=== PATIENT | male | born 1965 | race Caucasian/White ===

== ENCOUNTER 2019-07-23 13:17 | Observation (INO) | payer MEDICARE, MEDICAID ==
--- NOTE | 2019-07-23 13:48 | ED ---
Skin Complaint - HPI Summary HPI Summary: This patient is a 54 year old M presenting to [facility] by EMS accompanied by son with a chief complaint of draining abscess on lower inguinal/groin area since prior to arrival. Pt has PMHx of psoriasis. Per triage, the patient rates the pain 3/10 in severity. Patient denies fever, chills Per triage, Pt has abcess to left lower inguinal/groin area, which burst and is now painful and draining. Pt has not been out of his house for a full year and has not been seen by a physician in 2 years. Medications reviewed. 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 Onset Severity: Mild Current Severity: Mild Pain Intensity: 3 Pain Scale Used: 0-10 Numeric Skin Location: Other: - inguinal/groin Character: Pain, Redness Aggravating Symptom(s): Nothing Alleviating Symptom(s): Nothing Associated Signs & Symptoms: Negative Related History: Diabetes - Allergy/Home Medications Allergies/Adverse Reactions: Allergies Allergy/AdvReac Type Severity Reaction Status Date / Time No Known Allergies Allergy Verified 03/16/15 10:43 PMH/Surg Hx/FS Hx/Imm Hx Endocrine/Hematology History: Reports: Hx Diabetes - no treatment borderline per pt Cardiovascular History: Reports: Hx Hypertension Infectious Disease History: No Infectious Disease History: Denies: Traveled Outside the [place] in Last 30 Days - Family History Known Family History: Positive: Hypertension, Diabetes - Social History Occupation: Unemployed Alcohol Use: None Hx Substance Use: Yes - Occasionally Hx Tobacco Use: Yes Smoking Status (MU): Light Every Day Tobacco Smoker Review of Systems Negative: Fever, Chills Positive: Other - abscess on lower inguinal/groin area All Other Systems Reviewed And Are Negative: Yes Physical Exam - Summary Physical Exam Summary: Constitutional: Well-developed, Well-nourished, Alert. (-) Distressed Skin: Warm, Dry, Left glute and medial thigh with induration, fluctuance, purulent drainage HENT: Normocephalic; Atraumatic Eyes: Conjunctiva normal Neck: Musculoskeletal ROM normal neck. (-) JVD, (-) Stridor, (-) Tracheal deviation Cardio: Rhythm regular, rate normal, Heart sounds normal; Intact distal pulses; The pedal pulses are 2+ and symmetric. Radial pulses are 2+ and symmetric. (-) Murmur Pulmonary/Chest wall: Effort normal. (-) Respiratory distress, (-) Wheezes, (-) Rales Abd: Soft, (-) tenderness, (-) Distension, (-) Guarding, (-) Rebound Musculoskeletal: (-) Edema Lymph: (-) Cervical adenopathy GIGU : Testicle appears intact, no obvious crepitus Neuro: Alert, Oriented x3 Psych: Mood and affect Normal Triage Information Reviewed: Yes Vital Signs On Initial Exam: Initial Vitals Temp Pulse Resp BP Pulse Ox 97.8 F 99 16 117/70 96 07/23/19 13:29 07/23/19 13:29 07/23/19 13:29 07/23/19 13:29 07/23/19 13:29 Vital Signs Reviewed: Yes Diagnostics - Vital Signs Vital Signs Temp Pulse Resp BP Pulse Ox 07/23/19 13:29 97.8 F 99 16 117/70 96 - Laboratory Result Diagrams: 07/23/19 14:13 07/23/19 14:13 Lab Statement: Any lab studies that have been ordered have been reviewed, and results considered in the medical decision making process. - CT Pelvis CT CT Interpretation Completed By: ED Physician Summary of CT Findings: Pelvis CT reveals, per radiologist, IMPRESSION: 1. NO EVIDENCE FOR ABSCESS. 2. THERE IS SUGGESTION OF A SINUS TRACT FROM THE POSTERIOR SUPERFICIAL SOFT TISSUES TO THE SACROCOCCYGEAL REGION WHICH APPEARS TO BE PRESENT ON THE PRIOR STUDY AND SIMILAR IN APPEARANCE. Re-Evaluation - Re-Evaluation First Eval Re-Evaluation Time: 17:31 Comment: Rechecked pt Course/Dx - Course Course Of Treatment: Patient is here with infection in his perineal region. Given patient's infection location and severity of presentation, patient was treated empirically for Keagan's gangrene with vancomycin, clinic myosin, Zosyn. Patient had a normal lactate and WBC here. Patient had a CT scan showed no drainable abscess. Patient is admitted for IV antibiotics for cellulitis - Diagnoses Provider Diagnoses: Cellulitis of perineum, Psoriasis - Physician Notifications Discussed Care Of Patient With: Cari Heck Time Discussed With Above Provider: 17:35 Instructed by Provider To: Other - Discussed case with Dr. Heck who accepts pt for admission. Discharge ED - Sign-Out/Discharge Documenting (check all that apply): Patient Departure - Admit Patient Received Moderate/Deep Sedation with Procedure: No - Discharge Plan Condition: Stable Disposition: ADMITTED TO [facility] - Billing Disposition and Condition Condition: STABLE Disposition: Admitted to [facility] - Attestation Statements Document Initiated by Scribe: Yes Documenting Scribe: Carol Coon Provider For Whom Solomon is Documenting (Include Credential): Kailash Khan MD Scribe Attestation: Carol Reid, scribed for Kailash Khan MD on 07/23/19 at 1921. Scribe Documentation Reviewed: Yes Provider Attestation: The documentation as recorded by the Carol ivey accurately reflects the service I personally performed and the decisions made by Kailash sanchez MD Status of Scribe Document: Viewed
[2019-07-23] MEDS ORDERED: Clindamycin 300 MG IVPREMIX* 300 MG/50 ML SDV IVPB ONE ×2 (13:51→16:00)
[2019-07-23] MEDS ORDERED: Vancomycin(*) 1,500 MG in NS 0.9% 250 ML* 250 ML IVPB ONE (13:51)
[2019-07-23] MEDS ORDERED: Piperacillin/Tazobac ADVAN(*) 3.375 GM in NS 0.9% 100 ML* 100 ML IVPB ONE (13:51)
[2019-07-23 14:26] LABS: ABS Basophils 0.1 10^3/ul (0-0.2); ABS Eosinophils 0.1 10^3/ul (0-0.6); ABS Lymphocytes 1.2 10^3/ul (1.0-4.8); ABS Monocytes 0.6 10^3/ul (0-0.8); ABS Neutrophils 8.1 10^3/ul (1.5-7.7); Eosinophil % 1.4 %; Hematocrit 37 % (42-52); Hemoglobin 12.2 g/dL (14.0-18.0); Lymphocyte % 12.1 %; Mean Corpuscular HGB Conc 33 g/dL (31-36); Mean Corpuscular Hemoglobin 26 pg (27-31); Mean Corpuscular Volume 79 fL (80-94); Mean Platelet Volume 6.9 fL (7.4-10.4); Nucleated Red Blood Cells % 0.1; Platelet Count 305 10^3/uL (150-450); Red Cell Distribution Width 16 % (10-15); White Blood Count 10.2 10^3/uL (3.5-10.8)
[2019-07-23] MEDS ORDERED: Nicotine PATCH 14 MG/24 HR* PATCH TRANSDERM ONE (14:39)
[2019-07-23 15:04] LABS: Albumin 3.3 g/dL (3.2-5.2); BUN/Creatinine Ratio 24.6 (8-20); Calcium 8.9 mg/dL (8.6-10.3); EGFR African American 145.1 (>60); EGFR Non-African American 119.9 (>60); Globulin 3.3 g/dL (2-4); Potassium 3.5 mmol/L (3.5-5.0); Total Bilirubin 0.4 mg/dL (0.2-1.0); Total Protein 6.6 g/dL (6.4-8.9)
[2019-07-23] MEDS ORDERED: NS 0.9% 1000 ML** 1,000 ML IV ONE (15:16)
[2019-07-23] MEDS ORDERED: Iodixanol* (CONTRAST) 320 MG/ML 100 ML SDV IV ONE (15:51)
[2019-07-23] MEDS ORDERED: NS 0.9% 250 ML* 250 ML ONE (16:11)
[2019-07-23] MEDS ORDERED: Docusate CAP* 100 MG PO PRN (17:59)
[2019-07-23] MEDS ORDERED: oxyCODONE/Acetamin 5/325 MG* TAB PO PRN (17:59)
[2019-07-23 18:34] LABS: C Reactive Protein 96.26 mg/L (<8.01)
--- NOTE | 2019-07-23 21:19 | HP ---
CC: Dr. Canelo Richardson; Dr. Chad Méndez / Maddi Wagner NP * ADMISSION HISTORY AND PHYSICAL: DATE OF ADMISSION: 07/23/19 PRIMARY CARE PROVIDER: Dr. Canelo Richardson of [facility]. ATTENDING PHYSICIAN: Dr. Cari Heck.* (DICTATED BY TEETEE CHAHAL NP) INFECTIOUS DISEASE: Dr. Chad Méndez and Maddi Wagner NP CHIEF COMPLAINT: Draining abscess from the groin. HISTORY OF PRESENT ILLNESS: Mr. Miranda is a 54-year-old male patient with reported history of psoriasis, hypertension, tobacco abuse, and arthritis that presented to the emergency department today with a report of pimple like area in the groin that was painful and swollen that burst while at home. The patient noted purulent and sanguineous drainage from the area today and he came to the emergency department for evaluation. The patient states he did not have any fever or chills at home, reported no shortness of breath or dizziness, no constitutional complaints; however, the patient became concerned because he stated he noticed that he had some swelling in the area around the scrotum in his groin and then notices abscess formation superficial on the skin. In the emergency department, the patient had CAT scan done to rule out a Keagan's gangrene. The CAT scan did reveal no evidence for and a deep abscess in the pelvis. There was suggestion of a sinus tract from the posterior superficial soft tissues to the sacrococcygeal region, which appears to be present on prior study and similar in appearance. The emergency department physician did blood cultures on the patient and administered vancomycin, Zosyn, and clindamycin, again to cover for Keagan's gangrene; however, it does not appear that there was a deep abscess formation. However, given the nature of this cellulitis in the groin area and the sensitivity, hospitalists were requested to evaluate the patient for admission. PAST MEDICAL HISTORY: As stated above for psoriasis, hypertension, tobacco abuse, and arthritis. PAST SURGICAL HISTORY: None. MEDICATIONS: At home include: 1. Lisinopril with hydrochlorothiazide 20/25 mg 1 tablet p.o. daily. 2. Mobic 15 mg daily. ALLERGIES: The patient has no known drug allergies. FAMILY HISTORY: Mother with pancreatic cancer, hypertension, and diabetes. Father with hypertension. SOCIAL HISTORY: Reports a lifetime "of smoking." Denies any alcohol use. Denies any illicit drug use. The patient's healthcare proxy is his son who can be reached at [phone]. REVIEW OF SYSTEMS: A 10-point review of systems was evaluated and is negative except as noted in the HPI above. PHYSICAL EXAMINATION GENERAL: The patient is in no acute distress, somewhat pale but otherwise not ill appearing. VITAL SIGNS: Blood pressure 117/70, heart rate 99, respiratory rate 16, O2 saturation 96% on room air with temperature of 97.8. HEENT: The patient is atraumatic, normocephalic. PERRLA, nonicteric sclerae. Oral mucosa is moist. Tongue is midline. NECK: Supple, nontender. No thyromegaly appreciated. No JVD noted. LUNGS: Clear bilaterally to auscultation with no wheezing, rhonchi, or rales. Somewhat diminished at the bases but with good air entry. CARDIOVASCULAR: S1, S2 present. No murmurs, gallops, or rubs noted. Rate and rhythm are regular. ABDOMEN: Soft, nontender, nondistended, obese. Positive bowel sounds in all 4 quadrants. : The patient has erythematous and somewhat excoriated skin around the scrotum. There was a significant amount of edema. He does have an area of drainage noted in the groin. The erythema and edema does track into the medial left thigh, again noting some drainage from the area and into the gluteal fold. There is some fluctuance and induration. There is no obvious crepitus around the region and no crepitus noted to the scrotum or testicles. MUSCULOSKELETAL: The patient has full range of motion. +2 distal pulses palpable. No lower extremity edema. Gross motor and sensation, full range of motion are intact. SKIN: Skin is extremely dry and flaky throughout the trunk, arms, and legs, even throughout the scalp and face. He has 2 areas of scabbing and excoriation on the right cheek and also an area of fresh bleeding on the right cheek. The patient does appear to be itchy from the scab like areas from the psoriasis and quite dry. NEUROLOGIC: He is grossly intact. Alert and oriented x3 with no focal deficits. PSYCHIATRIC: He is cooperative and appropriate. DIAGNOSTIC STUDIES/LAB DATA: WBCs 10.2, RBCs 4.60, hemoglobin 12.2, hematocrit 37, platelets 305. Sodium 136, potassium 3.5, chloride 100, CO2 29, BUN 17, creatinine 0.69, GFR 119.9, glucose 117, lactic acid 1.5, calcium 8.9. Total bilirubin 0.40, AST 9, ALT 9, alk phos 82. CRP is pending. Total protein 6.6, albumin 3.3, globulin 3.3. Albumin globulin ratio of 1.0. CT of the pelvis as noted in the body of this document above. IMPRESSION: Mr. Miranda is a 54-year-old male with minimal medical history that presented to the emergency department today with complaint of groin pain and erythema, noted to have cellulitis and a draining area of superficial abscess. PLAN: The patient has been admitted to observation. 1. Groin cellulitis with superficial abscess. The patient has been given vancomycin, clindamycin, and Zosyn. At this point, he is not exhibiting any signs of sepsis. He is not meeting sepsis criteria. He has no white count, no fever, no tachycardia, and no hypotension. I think at this point we will continue him solely on clindamycin to cover him for skin pathogens. Blood cultures have already been drawn in the emergency department; however, wound culture has not been performed. I have ordered a wound culture now. We will continue to follow the wound culture. I have consulted Infectious Disease for additional recommendations. Again, the CAT scan does not show any deep abscess , so he does not require an I and D; however, given the area and the region of this localized infection and cellulitis, he would be higher risk for abscess formation, also the sinus tract that was noted on CT, which was there from previous imaging; however, again would be concerned that the patient would be high risk for abscess formation. The CRP is pending and again we look to Infectious Disease for any further recommendations. The patient is not compromised hemodynamically. He does not require IV fluids. 2. History of psoriasis. The patient does appear to have very poor skin condition. Per the ER notes and the nursing staff, the patient has not left his house in almost a year. I have put in recommendation for ammonium lactate topical 2 times a day and just do gentle washing of the skin with soap and water to reduce some of the flakiness and then topical ammonium lactate. We would also be looking for recommendations from nurse practitioner Maddi leonard for skin care recommendations as well. 3. History of hypertension. He is normotensive. He will be continued on his lisinopril/hydrochlorothiazide. 4. History of tobacco abuse. He will be given nicotine replacement. He has been counseled on cessation. 5. History of arthritis. He will be continued on Mobic daily. 6. DVT prophylaxis. He will be placed on Lovenox. He is moderate risk and we will encourage ambulation. 7. Diet. Heart healthy as tolerated. The rest of the patient's course will be determined by further diagnostics, laboratories, and any other input from other providers as warranted during this admission. TIME SPENT: Approximately 45 minutes on admission planning to observation. This plan of care has been discussed with Dr. Cari Heck, the attending on this admission; she is in agreement with the plan of care. TEETEE CHAHAL NP [id number]/[facility] #: [id number] NIKHIL
[2019-07-23] MEDS: Clindamycin 300 MG IVPREMIX* 300 MG/50 ML SDV IV SCH (22:02)
[2019-07-23] MEDS: Enoxaparin(*) 40 MG/0.4 ML SYR SUBCUT SCH (22:04)
[2019-07-23] MEDS: Ammonium Lactate 12% 1 APPLIC TUBE TOPICAL SCH (22:25)
[2019-07-24] MEDS: Clindamycin 300 MG IVPREMIX* 300 MG/50 ML SDV IV SCH ×2 (03:58→09:38)
[2019-07-24 05:10] LABS: ABS Eosinophils 0.2 10^3/ul (0-0.6); ABS Lymphocytes 1.4 10^3/ul (1.0-4.8); ABS Monocytes 0.6 10^3/ul (0-0.8); ABS Neutrophils 7.1 10^3/ul (1.5-7.7); Eosinophil % 1.9 %; Hematocrit 32 % (42-52); Hemoglobin 10.5 g/dL (14.0-18.0); Lymphocyte % 14.6 %; Mean Corpuscular HGB Conc 33 g/dL (31-36); Mean Corpuscular Hemoglobin 26 pg (27-31); Mean Corpuscular Volume 80 fL (80-94); Mean Platelet Volume 6.6 fL (7.4-10.4); Nucleated Red Blood Cells % 0.1; Platelet Count 265 10^3/uL (150-450); Red Blood Count 4.04 10^6 /uL (4.18-5.48); Red Cell Distribution Width 16 % (10-15); White Blood Count 9.3 10^3/uL (3.5-10.8)
[2019-07-24] MEDS: Hydrochlorothiazide TAB* 25 MG PO SCH (09:38)
[2019-07-24] MEDS: CMCS:Meloxicam(NF) 7.5 MG TAB PO SCH (09:38)
[2019-07-24] MEDS: Lisinopril TAB* 10 MG PO SCH (09:38)
[2019-07-24] MEDS: Ammonium Lactate 12% 1 APPLIC TUBE TOPICAL SCH ×2 (10:39→20:23)
--- NOTE | 2019-07-24 12:37 | CONS ---
CONSULTATION REPORT: DATE OF ADMISSION: 07/23/19 DATE OF CONSULTATION: 07/24/19 PRIMARY CARE PROVIDER: Dr. Canelo Richardson. PROVIDER REQUESTING CONSULTATION: Bessy Boles NP. CONSULTING SERVICE: Infectious disease. PROVIDER: Tia Liao NP. ATTENDING PROVIDER: Dr. Chad Méndez * (dictated by Tia Liao NP). REASON FOR CONSULTATION: Draining abscess from groin. IMPRESSION: 1. Superficial wounds to the groin and bilateral upper thighs. I suspect this represents stage II pressure ulcers as the patient spends a lot of time in a wheelchair and has limited mobility. There is no erythema in the area or warmth. There are no areas suggestive of undrained abscesses. The patient has no leukocytosis and is afebrile. 2. Tobacco abuse. 3. Obesity, BMI of 46.6. PLAN/RECOMMENDATIONS: The wounds do not appear to be grossly infected. Recommend holding antibiotics. He will need topical treatment for his open wounds. Recommend washing groin area daily with soap and water and apply barrier cream to the open areas. He has been instructed that he could use a pad to protect his clothing from any drainage from the superficial ulcers. Recommend to the patient that he consider seeing a granulizing machine operator regarding his psoriasis. We discussed not taking hot showers and taking warm showers and applying lotion to the intact dry, flaky skin during the day and he should continue using his psoriasis cream on the areas of psoriasis plaques that he has. HISTORY OF PRESENT ILLNESS: Mr. Miranda is a 54-year-old male with past medical history significant for psoriasis, hypertension, tobacco abuse, and arthritis who reports initially noticing pain in his groin on Monday or Monday. He states that the left side opened up on Monday and then the right side opened up on Monday. He denies any fevers or chills and was feeling well, other than the discomfort in his groin due to the wounds. The patient reports that he has been without running water in his house, except for his kitchen throughout the summer and has not been able to fully bathe during this time. The patient states that he noticed some bloody and purulent drainage from the area and decided to come to the emergency room for evaluation. While in the emergency room, he was noted to have edema around the scrotum and groin and some superficial abscesses in the area. He underwent a CT scan to rule out Keagan gangrene. The CT scan did not show any evidence for deep abscess in the pelvis. There was suggestion of a sinus tract, posterior superficial skin tissue to the sacrococcygeal region which had been present on a prior study and was similar in appearance. He had blood cultures drawn and was given a dose of vancomycin, Zosyn, and clindamycin for the possibility of Keagan gangrene. The patient was referred to the hospitalist service for admission. While in the hospital, the patient has remained afebrile with no leukocytosis. His CRP was elevated on admission at 96.26 in the ER and he was continued on clindamycin. He states that the pain that he was having in his groin is improving during this hospitalization. He was noted to have significant difficulty with movement in the bed. He states that he uses a lift chair at home. PAST MEDICAL HISTORY: 1. Psoriasis. 2. Hypertension. 3. Tobacco abuse. 4. Arthritis. PAST SURGICAL HISTORY: None. HOME MEDICATIONS: Lisinopril/hydrochlorothiazide 20/25 one tablet by mouth daily. HOSPITAL MEDICATIONS: 1. Ammonia lactate, apply topical twice daily. 2. Clindamycin 300 mg IV every 6 hours. 3. Colace 100 mg by mouth twice daily as needed for constipation. 4. Lovenox 40 mg subcutaneous daily. 5. Hydrochlorothiazide 25 mg by mouth daily. 6. Lisinopril 20 mg by mouth daily. 7. Meloxicam 15 mg by mouth daily. 8. Nicorette gum 4 mg by mouth every 2 hours as needed for cravings. 9. Percocet 5/325 one tablet by mouth every 6 hours as needed for pain. ALLERGIES: No known drug allergies. FAMILY HISTORY: Denies family history of recurrent resistant infections. Mother with a history of diabetes and pancreatic cancer. A grandfather and a great aunt with cancer that he is unsure of the type. Denies family history of coronary artery disease. SOCIAL HISTORY: Denies alcohol or recreational drug use. He reports smoking 1 pack a day for about 40 years. REVIEW OF SYSTEMS: I performed a 10-point review of systems. All the pertinent positives and negatives are mentioned in the history of present illness. The remaining review of systems are negative. He does report a history of cellulitis in the past, but did not require hospitalization for this. PHYSICAL EXAM: Vital Signs: Temperature 97.3, heart rate 78, respiratory rate 19, O2 sat 96% on room air, blood pressure 111/55. General Appearance: He is alert, appears to be in no acute distress. Head: Normocephalic, atraumatic. ENT: Extraocular movements are intact. Moist mucous membranes. Neck: Supple. No lymphadenopathy. Neurological: Alert and oriented x4. Cranial nerves II through XII are grossly intact. Cardiovascular: Heart rate is regular. No murmurs, rubs, or gallops heard. Respiratory: No accessory muscle use. The lungs are clear, but diminished to auscultation bilateral. Abdomen: Bowel sounds present. Abdomen is large, obese, and nontender. Extremities: There is bilateral lower extremity edema. Musculoskeletal: No clubbing or cyanosis noted. Exhibits good strength in all extremities. Psychological: Calm and cooperative. Skin: The patient has generalized dry and flaky skin including his scalp and face. In his groin, on bilateral posterior thighs, he has superficial open areas with red granulation tissue in the base. No surrounding erythema. Some superficial open areas to the scrotum. Additionally, in his groin on the medial aspect of the upper thighs, he has some induration and edema , but no fluctuance suggestive of abscesses. No tenderness with palpation of this area, other than with palpation of the open areas. DIAGNOSTIC STUDIES/LAB DATA: Sodium 136, potassium 3.5, chloride 100, CO2 of 29 , BUN 17, creatinine 0.69, glucose 117. White blood cell count 9.3, hemoglobin 10.5, hematocrit 32, platelet count 265. CRP on admission 96.26. Please see impression and recommendations outlined above. Recommendations have been discussed with Dr. Francois. Thank you for asking us to see Mr. Miranda in consultation. The case has been reviewed with my attending, Dr. Chad Méndez, who agrees with the plan of care. Reviewed by TIA LIAO, FERNANDO-Tigre 07/25/19 1303 [id number]/[facility] #: [id number] MTDD
--- NOTE | 2019-07-24 13:43 | PN ---
Subjective Date of Service: 07/24/19 Interval History: patient seen this morning, he was lying in bed comfortably, he had difficulty transitioning from one side to side due to body habitus, otherwise denies any chest pain. There was no events overnight. Remains afebrile and normal WBC. Perineum area examined with the presence of his nurse and ID SPORTS RECRUITER Maddi. His lesion are consistent with superficial stage 2 scrotal ulcers bilateral larger on the left side. Does not seem to be infected locally or systemically. Past Medical History: Unchanged from Admission Objective Active Medications: Ammonium Lactate (Lac-Hydrin 12 %) 1 applic TOPICAL BID [facility] Last Admin: 07/24/19 10:39 Dose: 1 applic Docusate Sodium (Colace Cap*) 100 mg PO BID PRN PRN Reason: CONSTIPATION Enoxaparin Sodium (Lovenox(*)) 40 mg SUBCUT Q24H [facility] Last Admin: 07/23/19 22:04 Dose: 40 mg Hydrochlorothiazide (Hydrodiuril Tab*) 25 mg PO DAILY [facility] Last Admin: 07/24/19 09:38 Dose: 25 mg Lisinopril (Prinivil Tab*) 20 mg PO DAILY [facility] Last Admin: 07/24/19 09:38 Dose: 20 mg Meloxicam (Mobic(Nf)) 15 mg PO DAILY [facility] Last Admin: 07/24/19 09:38 Dose: 15 mg Nicotine Polacrilex (Nicotine Gum*) 4 mg PO Q2H PRN PRN Reason: CRAVING Oxycodone/Acetaminophen (Percocet 5/325 Tab*) 1 tab PO Q6H PRN PRN Reason: PAIN - SEVERE Vital Signs - 8 hr 07/24/19 11:15 Temperature 98.3 F Pulse Rate 74 Respiratory 20 Rate Blood Pressure 95/56 (mmHg) O2 Sat by Pulse 97 Oximetry Oxygen Devices in Use Now: None Appearance: obese, poor hygiene lying in bed in a bariatric bed experiencing difficulty rotating himself in bed from one side to another. Eyes: No Scleral Icterus, - - EOMI Ears/Nose/Mouth/Throat: Mucous Membranes Moist Neck: - - large neck, but supple having difficult extending his neck due to body habitus Respiratory: - - limited to anterior auscultations, poor airflow and distant breath sounds. Abdominal: NL Sounds; No Tenderness; No Distention - obese, Extremities: - - bilateral lymphedema Skin: - - bilateral scrotal sac stage 2 ulcers larger on left. Neurological: Alert and Oriented x 3 - having difficult lifting his leg of the bed due to deconditioning. Result Diagrams: 07/24/19 04:52 07/23/19 14:13 Assess/Plan/Problems-Billing Assessment: 54 y/o male morbid obese admitted via ER for presumed scrotal cellulitis and was treated empirically with Vanco/Zosyn and clinda. Upon evaluation today His skin lesion are consistent with stage 2 ulcers due to pressure ulcer and poor hygiene. - Patient Problems (1) Decubitus skin ulcer Current Visit: Yes Status: Acute Code(s): L89.90 - PRESSURE ULCER OF UNSPECIFIED SITE, UNSPECIFIED STAGE SNOMED Code(s): 779032355 Comment: - His skin wound are consistent with decubitus ulcers. No sign of localized or systemic infecitons - will require personal hygiene to preneal area with soap and water - Wound care consult appreciated. Will implement the wound care recommendations with barrier cream (2) Morbid obesity Current Visit: Yes Status: Acute Code(s): E66.01 - MORBID (SEVERE) OBESITY DUE TO EXCESS CALORIES SNOMED Code(s): 028157135 Comment: - Patient having difficulty moving in bed due to body habitus. Poor hygiene with clear evidence of having difficulty performing personal hygiene at home and caring for himself - At this time, secondary social studies teacher referred to help coordinate safe disposition (3) Psoriasis Current Visit: Yes Status: Acute Code(s): L40.9 - PSORIASIS, UNSPECIFIED SNOMED Code(s): 7116528 Comment: - Will require Dermatology referral as outpatient (4) Hypertension Current Visit: Yes Status: Acute Code(s): I10 - ESSENTIAL (PRIMARY) HYPERTENSION SNOMED Code(s): 92662225 Comment: - continue lisinoprol 20 mg and HCTZ 25 mg (5) DVT prophylaxis Current Visit: Yes Status: Acute Code(s): Z29.9 - ENCOUNTER FOR PROPHYLACTIC MEASURES, UNSPECIFIED SNOMED Code(s): 908551095 Comment: - Lovenox 40 mg SQ daily Status and Disposition: home versus placement pending social and discharge plan assessment
[2019-07-24] MEDS: Nicotine* 4MG (FRUIT FLAVOR) GUM PO PRN (17:52)
[2019-07-24] MEDS: Enoxaparin(*) 40 MG/0.4 ML SYR SUBCUT SCH (20:19)
[2019-07-25 07:33] VITALS: BP 101/64
[2019-07-25] MEDS: Nicotine* 4MG (FRUIT FLAVOR) GUM PO PRN (07:34)
[2019-07-25] MEDS: Hydrochlorothiazide TAB* 25 MG PO SCH (07:35)
[2019-07-25] MEDS: CMCS:Meloxicam(NF) 7.5 MG TAB PO SCH (07:36)
[2019-07-25] MEDS: Lisinopril TAB* 10 MG PO SCH (07:39)
[2019-07-25] MEDS: Ammonium Lactate 12% 1 APPLIC TUBE TOPICAL SCH (07:40)
--- NOTE | 2019-07-25 10:33 | DS ---
CC: Primary care provider, Dr. Canelo Richardson * DISCHARGE SUMMARY: DATE OF ADMISSION: 07/23/19 DATE OF DISCHARGE: 07/25/19 FINAL DISCHARGE DIAGNOSES: 1. Bilateral decubitus ulcer inner thigh. 2. Hypertension. 3. Psoriasis. 4. Morbid obesity. HOSPITAL COURSE: This is a 54-year-old, morbidly obese, with underlying psoriasis, hypertension, tobacco abuse, who presented to the emergency room for swelling, pain and irritation in the groin area. He reported to the emergency room he felt like a pimple with fluid discharge in the inner thigh. In the emergency room there was concern for Keagan's disease. He underwent full workup for Keagan's which included pelvic CT scan which did not show any abscess. Did not show any acute pathology other than sinus tract in the posterior soft tissue of the sacral coccygeal region which is not near where the lesion is, and it is unchanged from previous imaging. Medicine service was called to be admitted for abscess and cellulitis. He was covered with Zosyn, vanco and clindamycin. Patient was seen and evaluated by me on the following day. Patient examined at bedside. I did not appreciate any abscess formation. He does have bilateral decubitus ulcer to the inner thigh in the fold area, largest on the left side. No evidence of erythema or abscess formation. I did consult with Infectious Disease who concur with my assessment and recommended only local wound treatment. Patient reevaluated yesterday. Given his morbid obesity, limited ability to care for himself and personal hygiene we presented that he will benefit from short term rehab until he gains strength and until his wound ulcer heals, with the recommendation of the wound care as below. He agreed to be transferred to short term rehab and he is scheduled to be released to [facility] today. Hence, patient was seen and reevaluated, and he is stable for discharge today. PHYSICAL EXAMINATION: His vital signs are temperature is 97.9, pulse 63, respiratory rate 23, satting 96%, blood pressure 101/64. General: He is awake , alert, oriented, in no distress. Tolerating p.o. well. Head and Neck: Normocephalic, atraumatic. Supple. Lungs: Limited to posterolateral. No crackles , rhonchi or wheeze. Distant breath sounds limited by the body habitus. Abdomen : Soft, obese, nontender extremities: He does have positive 1+ nonpitting edema with lymphedema. He does have large pannus and inner thigh skin fold with decubitus ulcers at the inner thigh, mainly on the left side. DIAGNOSTIC STUDIES/LAB DATA: 1. CBC fairly unremarkable. Normal white count. Chronic anemia with hematocrit 10.5/32. It did drop from 37 and this is after fluid hydration. No active bleeding. 2. Chemistries show significant for fasting blood sugar of 117, remaining unremarkable. Slightly elevated CRP 96. 3. Pelvic CT which shows no evidence of abscess formation. Severe osteoarthritic changes of both hips. Has sinus tract in the posterior superficial soft tissue to the sacral coccygeal region which is present on prior study with no significant changes. DISCHARGE MEDICATIONS: 1. Patient will be placed on Lac-Hydrin topically b.i.d. along with bacitracin applied to the wound area after washing with soap and water, and covering with ABD to keep the area dry. 2. Colace b.i.d. p.r.n. 3. Lovenox 40 mg subcu daily until he is fully ambulatory. Resume home meds: 1. Lisinopril with hydrochlorothiazide 20/25. 2. Nicotine gum p.r.n. 3. Tylenol 650 every 4 p.r.n. DISCHARGE INSTRUCTIONS: 1. To be discharged to [facility] today. 2. PT/OT. 3. Wound care to the wound area to wash with soap and water, apply bacitracin and Lac-Hydrin b.i.d. after patting it dry and then cover it with ABD to keep the area dry and clean; do this twice a day. DISCHARGE CONDITION: Stable DISCHARGE DISPOSITION: [place] [id number]/[facility] #: [id number] [facility]
== END 2019-07-25 12:15 ==
LOC: ED 13:17 → MED 18:54
PROVIDERS: ADMIT Internal Medicine; ATTEND Internal Medicine
DX: L89.899 Pressure ulcer of other site, unspecified stage (principal); I10 Essential (primary) hypertension; L40.9 Psoriasis, unspecified; R73.03 Prediabetes; E66.01 Morbid (severe) obesity due to excess calories; Z79.899 Other long term (current) drug therapy; F17.210 Nicotine dependence, cigarettes, uncomplicated
CPT/HCPCS: 36415; 72193; 80053; 83605; 85025; 86140; 87040; 87070; 87077; 87205; 96365; 96366; 96367; 96372; 99284; 99406; A9270-GY; G0378; J1650; J2543; J3370; Q9967